=== PATIENT | male | born 1955 | race Caucasian/White ===

== ENCOUNTER 2016-08-06 13:16 | Emergency (ER) | payer BC ==
[2016-08-06] MEDS ORDERED: ACETAMINOPHEN 325 MG TABLET ONE (15:11)
[2016-08-06] MEDS ORDERED: MORPHINE SULFATE 4 MG/ML SYRINGE ONE (15:11)
[2016-08-06] MEDS ORDERED: IBUPROFEN 600 MG TABLET ONE (15:11)
--- NOTE | 2016-08-06 16:25 | RAD ---
HIP - RIGHT 2 VW + AP PELVIS COMPARISON: Pelvis and right hip, 07/03/2016 HISTORY: 60-year-old male who felt a pop and then pain in his right hip. FINDINGS: Views: AP pelvis. Right hip AP and lateral. Bones: No acute finding. No change. Joints: No change. Mild narrowing and osteophytes at both hips. Lower lumbar spine: No change. Severe narrowing of the lower lumbar disks. Soft tissues: Normal. IMPRESSION: 1. No acute finding. Osteoarthritis of both hips. 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 2. Severe spondylosis with disc narrowing, L4-5 and L5-S1.
[2016-08-06] MEDS ORDERED: HYDROCODONE/ACETAMINOPHEN 5/325MG TABLET ONE (16:44)
== END 2016-08-06 16:54 | disposition home or self-care (01) ==
LOC: ED 13:16
DX: M54.31 Sciatica, right side (principal); M25.551 Pain in right hip
CPT/HCPCS: 73502; 99283 ×2; 96372; A9270 ×3; J2270